=== PATIENT | male | born 1990 | race American Indian/Alaskan Native ===

== ENCOUNTER 2017-10-21 04:45 | Emergency (ER) | payer SELFPAY ==
[2017-10-21 05:46] VITALS: BP 140/91
== END 2017-10-21 10:37 | disposition left against medical advice (07) ==
LOC: ED 04:45
DX: K08.89 Other specified disorders of teeth and supporting structures (principal); Z53.21 Procedure and treatment not carried out due to patient leaving prior to being seen by health care provider